=== PATIENT | female | born 1970 | race Caucasian/White ===

== ENCOUNTER 2018-06-22 18:11 | Emergency (ER) | payer BC, OTHER ==
[~2018-06-22] VITALS: Ht 172.7 cm; Wt 93.0 kg
[2018-06-22] MEDS ORDERED: AUGMENTIN 875875 MG PO (19:13)
[2018-06-22] MEDS ORDERED: IBUPROFEN600 MG PO (19:13)
== END 2018-06-22 19:21 | disposition home or self-care (01) ==
LOC: ED 18:11
DX: S81.851A Open bite, right lower leg, initial encounter (principal); Z88.2 Allergy status to sulfonamides; W54.0XXA Bitten by dog, initial encounter; Y93.89 Activity, other specified; Y92.89 Other specified places as the place of occurrence of the external cause; Y99.8 Other external cause status

== ENCOUNTER 2025-04-10 16:05 | Emergency (ER) | payer BC ==
[~2025-04-10] VITALS: Ht 172.7 cm; Wt 102.1 kg
[~2025-04-10 16:05] MED LIST: AUGMENTIN 875875 MG PO; IBUPROFEN600 MG PO
[2025-04-10] MEDS ORDERED: PROMETHAZINE-D473 M1 PO (21:25)
[2025-04-10] MEDS ORDERED: AMOX-CLAV 875-1 EACH PO (21:25)
== END 2025-04-10 21:22 | disposition home or self-care (01) ==
LOC: ED 16:05
DX: J40 Bronchitis, not specified as acute or chronic (principal); R42 Dizziness and giddiness; Z88.2 Allergy status to sulfonamides; Z20.822 Contact with and (suspected) exposure to COVID-19